=== PATIENT | male | born 1990 | race African-American/Black ===

== ENCOUNTER 2018-11-16 13:54 | Outpatient (CLI) | payer MEDICARE, MEDICAID ==
--- NOTE | 2018-11-16 15:10 | MRI ---
MRI LEFT HIP WITHOUT CONTRAST: HISTORY: Hip pain. COMPARISON: None. FINDINGS: Bones: There diffusely abnormal decreased signal on the T1 weighted imaging sequence of the lumbar s pine, extending to the sacrum. No associated T2 signal abnormalities are seen with this signal to corado ggest red marrow. There is osteonecrosis of the left femoral head, with edema surrounding the osteoc hondral fragment and mild flattening of the left femoral head. There is developing early secondary o steoarthritic disease of the left hip with small acetabular osteophyte formation and subcortical reac tive marrow changes of the posterior acetabulum. Early loss of normal sphericity of the femoral head articular surface. The ligament of teres is inta ct. Moderate joint effusion of the left hip. Muscle bulk is normal. Mild degenerative disease of the pubic symphysis. No greater trochanteric bursitis. The tendons are intact. IMPRESSION: 1. Osteonecrosis, left femoral head, with edema surrounding the osteochondral fragment, as well as e neil within the left femoral neck. 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 2. Anterior-superior labral tear, through the substance of the labrum. Orthopedic consultation pooja mmended. POS: [facility]
== END 2018-11-16 13:55 | disposition home or self-care (01) ==
LOC: SCSMRI 13:54
PROVIDERS: ATTEND Physician Assistant
DX: M25.552 Pain in left hip (principal); S73.102A Unspecified sprain of left hip, initial encounter; M87.852 Other osteonecrosis, left femur; R60.0 Localized edema; M16.7 Other unilateral secondary osteoarthritis of hip